=== PATIENT | female | born 1980 | race Caucasian/White ===

== ENCOUNTER 2021-09-27 10:00 | Outpatient (CLI) | payer OTHER, SELFPAY ==
[2021-09-27 10:12] LABS: Basophils Absolute Auto 0.05 K/uL (0.00-0.30); Basophils Percent Auto 0.8 % (0.0-3.0); Eosinophils Absolute Auto 0.24 K/uL (0.00-0.50); Eosinophils Percent Auto 3.8 % (0.0-7.0); Hematocrit 40.3 % (33.0-51.0); Hemoglobin* 13.4 gm/dL (12.0-16.0); Lymphocytes Absolute Auto 2.26 K/uL (0.90-2.90); Lymphocytes Percent Auto 35.5 % (20-44); Mean Corpuscular HGB Conc 33 gm/dL (32-36); Mean Corpuscular Hemoglobin 28 pg (26-34); Mean Corpuscular Volume 84 fL (80-100); Monocytes Absolute Auto 0.58 K/UL (0.00-0.90); Monocytes Percent Auto 9.1 % (0.0-11.0); Neutrophils Absolute Auto 3.24 K/uL (1.7-7.0); Neutrophils Percent Auto 50.8 % (42.0-72.0); Platelet Count* 255 K/uL (140-440); Red Blood Count 4.81 m/uL (4.00-5.20); White Blood Count* 6.37 K/uL (4.50-11.00)
[2021-09-27 10:13] LABS: Slide Review Reflex No
[2021-09-27 14:24] LABS: Albumin* 4.5 g/dL (3.3-5.0); Chloride* 104 mmol/L (96-114); Potassium* 4.4 mmol/L (3.6-5.1); Sodium* 137 mmol/L (135-149)
[2021-09-27 14:26] LABS: Amylase* 57 U/L (18-89); Creatinine* 0.6 mg/dL (0.5-1.5); Estimated Glomerular Filt Rate 116 ml/min
[2021-09-27 14:27] LABS: Alanine Aminotransferase* 30 U/L (4-35); Alkaline Phosphatase* 66 U/L (40-150); Aspartate Amino Transferase* 31 U/L (12-35); Bilirubin Total* 1.4 mg/dL (0.1-1.5); Blood Urea Nitrogen* 11 mg/dL (5-24); Calcium* 9.3 mg/dL (8.4-10.6); Carbon Dioxide* 25 mmol/L (20-32); Glucose* 110 mg/dL (60-115); Lipase* 98 U/L (23-300); Total Protein* 7.6 g/dL (6.0-8.3)
== END 2021-09-27 10:01 | disposition home or self-care (01) ==
PROVIDERS: PCP Family Medicine; Visit Provider Family Medicine
DX: R10.13 Epigastric pain (principal); E66.9 Obesity, unspecified; R03.0 Elevated blood-pressure reading, without diagnosis of hypertension
CPT/HCPCS: 80053; 82150; 83690; 85025

== ENCOUNTER 2021-10-03 13:49 | Outpatient (CLI) | payer OTHER, SELFPAY ==
--- NOTE | 2021-10-03 14:00 | CRLHL7_ITS ---
For Patients: As a result of the Century Cures Act, medical imaging exams and procedure reports are released immediately into your electronic medical record. You may view this report before your referring provider. If you have questions, please contact your health care provider. INDICATION: EPIGASTRIC PAIN COMPARISON: none TECHNIQUE: Real time michael scale imaging and color Doppler analysis was performed of the right upper quadrant. FINDINGS: The patient`s liver is of normal size and has diffusely increased echogenicity. There is a normal appearance of the hepatic IVC and proximal abdominal aorta. There is no evidence of ascites. The gallbladder is of normal size and there is no evidence of intraluminal stones or sludge. The gallbladder wall measures 2 mm in thickness. The common bile duct is of normal size and measures 5 mm in diameter at the level of the nick hepatis. The pancreas appears normal. There is no evidence of a stone or hydronephrosis within the right kidney. The right kidney measures 10.1 cm in length. IMPRESSION: Severe diffuse hepatic steatosis. Remainder normal. Dictated by Pratik Capone MD @ 10/03/2021 2:52:21 PM (Electronically Signed)
--- NOTE | 2021-10-03 15:00 | CRLHL7_ITS ---
For Patients: As a result of the Century Cures Act, medical imaging exams and procedure reports are released immediately into your electronic medical record. You may view this report before your referring provider. If you have questions, please contact your health care provider. BILATERAL DIGITAL SCREENING MAMMOGRAM WITH COMPUTER-AIDED DETECTION, 10/03/2021 CLINICAL HISTORY: Routine screening exam. COMPARISON: None TECHNIQUE: Digital mammogram in CC and MLO projections including computer-aided detection (CAD). BREAST COMPOSITION: There are scattered areas of fibroglandular density FINDINGS: RIGHT Breast: Focal asymmetric density lateral breast posterior depth 11 cm from the nipple. LEFT Breast: No suspicious findings. IMPRESSION: RIGHT breast asymmetry/mass. RECOMMENDATIONS: Additional mammographic views of the RIGHT breast including 3D CC/MLO. RIGHT breast ultrasound may also be required. BI-RADS Category 0: Incomplete: Need Additional Imaging Evaluation and/or Prior Mammograms for Comparison The [facility] will contact the patient for follow-up. Dictated by Pratik Capone MD @ 10/04/2021 9:17:38 AM PT/Dictated by: Pratik Capone MD @ 10/04/2021 9:17:00 AM (Electronically Signed)
== END 2021-10-03 13:50 | disposition home or self-care (01) ==
LOC: US 13:50
PROVIDERS: PCP Family Medicine; Visit Provider Family Medicine
DX: R10.13 Epigastric pain (principal); K76.0 Fatty (change of) liver, not elsewhere classified; Z12.31 Encounter for screening mammogram for malignant neoplasm of breast; N63.10 Unspecified lump in the right breast, unspecified quadrant
CPT/HCPCS: 76705; 77063; 77067

== ENCOUNTER 2021-10-15 09:55 | Outpatient (CLI) | payer OTHER, SELFPAY ==
--- NOTE | 2021-10-15 09:45 | CRLHL7_ITS ---
For Patients: As a result of the Cures Act, medical imaging exams and procedure reports are released immediately into your electronic medical record. You may view this report before your referring provider. If you have questions, please contact your health care provider. DIGITAL DIAGNOSTIC RIGHT MAMMOGRAM USING TOMOSYNTHESIS AND COMPUTER-AIDED DETECTION RIGHT BREAST ULTRASOUND CLINICAL HISTORY: RIGHT breast mass/asymmetry. COMPARISON: 10/03/2021. TECHNIQUE: Digital RIGHT mammogram in two projections. Tomosynthesis and CAD utilized. Real-time ultrasound imaging of RIGHT breast with imaging documentation. BREAST COMPOSITION: There are areas of scattered fibroglandular density. FINDINGS: 3D MLO and 3D XCCL mammograms RIGHT breast submitted. Decreased conspicuity of asymmetric density. No architectural distortion or adenopathy. No suspicious calcifications. Targeted RIGHT breast ultrasound performed in the upper outer quadrant 11 cm from the nipple performed. Normal fibroglandular tissue noted. No suspicious findings. IMPRESSION: Normal fibroglandular tissue RIGHT breast. No evidence of malignancy. RECOMMENDATIONS: Annual BILATERAL screening mammography. Results and recommendations discussed with the patient. BI-RADS Category 2: Benign A lay language report of this examination will be provided to the patient. Dictated by Pratik Capone MD @ 10/15/2021 12:27:50 PM hongj/Dictated by: Pratik Capone MD @ 10/15/2021 12:27:00 PM (Electronically Signed)
--- NOTE | 2021-10-15 10:15 | CRLHL7_ITS ---
For Patients: As a result of the Cures Act, medical imaging exams and procedure reports are released immediately into your electronic medical record. You may view this report before your referring provider. If you have questions, please contact your health care provider. PLEASE SEE DIGITAL DIAGNOSTIC RIGHT MAMMOGRAM PERFORMED SAME DAY CRL:corazon chandra/Dictated by: Pratik Capone MD @ 10/15/2021 12:28:00 PM (Electronically Signed)
== END 2021-10-15 09:56 | disposition home or self-care (01) ==
LOC: MAMMO 09:55
PROVIDERS: PCP Family Medicine; Visit Provider Family Medicine
DX: N63.10 Unspecified lump in the right breast, unspecified quadrant (principal); R92.8 Other abnormal and inconclusive findings on diagnostic imaging of breast
CPT/HCPCS: 76642; 77065; G0279

== ENCOUNTER 2022-09-23 13:32 | Outpatient (CLI) | payer OTHER, SELFPAY | END 2022-09-23 13:33 | disposition home or self-care (01) | LOC: NFLDREF 09-25 08:13 | PROVIDERS: PCP Family Medicine; Referring Provider Family Medicine; Visit Provider Family Medicine | DX: Z00.00 Encounter for general adult medical examination without abnormal findings (principal); E78.5 Hyperlipidemia, unspecified; R03.0 Elevated blood-pressure reading, without diagnosis of hypertension; E66.9 Obesity, unspecified; R10.13 Epigastric pain; G44.229 Chronic tension-type headache, not intractable | CPT/HCPCS: 80053; 80061 ==

== ENCOUNTER 2022-10-02 15:37 | Outpatient (CLI) | payer OTHER, SELFPAY ==
--- NOTE | 2022-10-02 16:00 | CRLHL7_ITS ---
For Patients: As a result of the Century Cures Act, medical imaging exams and procedure reports are released immediately into your electronic medical record. You may view this report before your referring provider. If you have questions, please contact your health care provider. INDICATION: EPIGASTRIC PAIN COMPARISON: 10/03/2021 TECHNIQUE: Real time michael scale imaging and color Doppler analysis was performed of the right upper quadrant. FINDINGS: The patient`s liver is of normal size and has coarsened and increased echogenicity. There is a normal appearance of the hepatic IVC and proximal abdominal aorta. There is no evidence of ascites. The gallbladder is of normal size and there is no evidence of intraluminal stones or sludge. The gallbladder wall measures 2 mm in thickness. The common bile duct is of normal size and measures 3 mm in diameter at the level of the nick hepatis. The pancreas appears normal. There is no evidence of a stone or hydronephrosis within the right kidney. The right kidney measures 11.0 cm in length. IMPRESSION: Mild diffuse hepatic steatosis. Remainder normal. Dictated by Pratik Capone MD @ 10/03/2022 9:16:15 AM (Electronically Signed)
== END 2022-10-02 15:38 | disposition home or self-care (01) ==
LOC: US 15:37
PROVIDERS: PCP Family Medicine; Visit Provider Family Medicine
DX: R10.13 Epigastric pain (principal); K76.0 Fatty (change of) liver, not elsewhere classified
CPT/HCPCS: 76705

== ENCOUNTER 2022-12-18 15:01 | Outpatient (CLI) | payer OTHER, SELFPAY ==
--- NOTE | 2022-12-18 15:20 | CRLHL7_ITS ---
For Patients: As a result of the Century Cures Act, medical imaging exams and procedure reports are released immediately into your electronic medical record. You may view this report before your referring provider. If you have questions, please contact your health care provider. BILATERAL SCREENING MAMMOGRAM WITH COMPUTER-AIDED DETECTION TECHNIQUE: CC and MLO views were obtained. These mammographic images have been obtained using full-field digital technique. These mammographic images were interpreted with the benefit of computer-aided detection. COMPARISON FILM: 10/03/21, 10/15/21 (RT). FINDINGS: There are scattered areas of fibroglandular density IMPRESSION: There is no radiographic evidence for malignancy. ASSESSMENT: BI-RADS Category 1: Negative RECOMMENDATION: Routine screening mammogram in 1 year. A lay language report of this examination will be provided to the patient. Pratik Capone M.D. Diagnostic Radiologist [email or web address]/Dictated by: Pratik Capone MD @ 12/19/2022 10:12:00 AM (Electronically Signed)
== END 2022-12-18 15:02 | disposition home or self-care (01) ==
LOC: MAMMO 15:01
PROVIDERS: PCP Family Medicine; Visit Provider Physician Assistant
DX: Z12.31 Encounter for screening mammogram for malignant neoplasm of breast (principal)
CPT/HCPCS: 77067

== ENCOUNTER 2023-01-14 13:01 | Outpatient (CLI) | payer OTHER, SELFPAY | END 2023-01-14 13:02 | disposition home or self-care (01) | LOC: NFLDREF 01-15 11:29 | PROVIDERS: PCP Family Medicine; Visit Provider Family Medicine | DX: K76.0 Fatty (change of) liver, not elsewhere classified (principal) | CPT/HCPCS: 80076 ==

== ENCOUNTER 2023-08-22 08:05 | Day surgery (SDC) | payer OTHER, SELFPAY ==
[2023-08-22] VITALS (26 sets, daily range): BP systolic 101–131; BP diastolic 56–87; PULSE 43–69; RESP 10–20; TEMP 36.2–37.1; O2SAT 89–100; BMI 29.8
--- NOTE | 2023-08-22 08:08 | ED_ITS ---
HPI - General Adult General Time Seen by Provider: 08:08 Date Seen: 08/22/23 Chief complaint: Abdominal Pain Stated complaint: abdominal pain,nausea Time Seen by Provider: 08/22/23 08:07 Source: patient, RN notes reviewed and old records reviewed Mode of arrival: ambulatory Limitations: no limitations History of Present Illness HPI narrative: 43-year-old female who presents today with abdominal pain and nausea. Patient notes right-sided abdominal pain and nausea with no vomiting this morning and overnight. Says this feels similar to her usual liver pain but has lasted longer. She notes that she did fall and land on her back yesterday and is concerned about trauma. Feels bloated, did have a bowel movement this morning which was normal. No fevers or chills. Has not taken anything for her symptoms Related Data Home Medications ?Medication ?Instructions ?Recorded ?Confirmed iodine 150 mcg tablet 300 tab PO DAILY 09/24/21 08/22/23 magnesium oxide 400 mg (241.3 mg mg PO .Bedtime 09/24/21 06/11/23 magnesium) tablet calcium carbonate (Tums) 200 mg PO .hs 09/27/21 08/22/23 calcium carbonate 333 mg-magnesium tab PO DAILY 09/27/21 06/11/23 oxide 133 mg-zinc gluc 5 mg tablet omega-3 fatty acids-fish oil 360 2 cap PO BID 09/27/21 08/22/23 mg-1,200 mg capsule (Fish Oil) omeprazole 20 mg tablet,delayed 20 mg PO QAM 09/27/21 08/22/23 release Previous Rx's ?Medication ?Instructions ?Recorded propranolol 60 mg capsule,24 60 mg PO QHS #90 caps 09/23/22 hr,extended release rosuvastatin 10 mg tablet 10 mg PO QDAY #90 ea 01/07/23 norethindrone (contraceptive) 0.35 0.35 mg PO QDAY #84 ea 06/11/23 mg tablet (Incassia) Allergies Allergy/AdvReac Type Severity Reaction Status Date / Time acetaminophen Allergy Intermediate Vomiting Verified 08/22/23 09:20 hydrocodone Allergy Intermediate Vomiting Verified 08/22/23 09:20 [facility] Medical History Migraine ?G43.909 - Migraine, unspecified, not intractable, without status migrainosus (ICD-10) History of irritable bowel syndrome ?Z87.19 - Personal history of other diseases of the digestive system (ICD-10) History of anemia ?Z86.2 - Personal history of diseases of the blood and blood-forming organs and certain disorders involving the immune mechanism (ICD-10) Family History (Updated 08/22/23 @ 11:09 by Estefania Valdivia MD) Uncle Brain tumor Father Diabetes History of hyperlipidemia High blood pressure Mother High blood pressure Social History Narrative: business analyst project manager. . Nonsmoker. What is your current living situation?: I presently have a place to live Problems where you live: no known problems In the past 12 months, utilities in danger of being shut off: no In past 12 months, lack of transportation kept you from medical appts, meetings, work, or getting things needed for daily living: no In the past 12 mos, have been you worried that your food would run out before you had money to buy more?: never true In the past 12 mos, the food you bought just didn't last and you didn't have money to buy more?: never true Smoking Status: Never smoker How often do you have a drink containing alcohol: never How often do you have six or more drinks on one occasion: Never AUDIT-C Alcohol total score: 0 Non-prescribed substance use: denies use How often does anyone, including family, friends and others, physically hurt you : never How often does anyone, including family, friends and others, insult or talk down to you: rarely How often does anyone, including family, friends and others, threaten you with harm: never How often does anyone, including family, friends and others, scream or curse at you: never Little interest or pleasure in doing things: not at all Feeling down, depressed, or hopeless: not at all Exam Narrative: Exam Narrative: General: Well-developed and well-nourished, no acute distress Head: Atraumatic and normocephalic Eyes: Pupils are equal reactive, extraocular motions intact, conjunctiva clear ENT: External nose and ears are normal, posterior pharynx without erythema or exudate Neck: No midline cervical tenderness, full spontaneous range of motion the neck, trachea midline, no adenopathy Heart: Regular rate and rhythm no murmurs or thrills Lungs: Clear to auscultation bilaterally without wheezes or crackles Abdomen: Soft, epigastric and right upper quadrant tenderness, nondistended with active bowel sounds Musculoskeletal: No tenderness, deformity, or edema Neurologic: Awake, alert, and oriented x3, no gross focal neurologic deficits, cranial nerves intact as tested Psych: Mood and affect are appropriate Skin: No rashes Const: Vital Signs, click to edit/add: Vital Signs - 24 hr 08/22/23 08:09 08/22/23 09:20 08/22/23 10:40 Temperature 97.2 F L Pulse Rate [Pulse Oximeter] 56 L 52 L 52 L Respiratory Rate 16 16 Blood Pressure [Ri ght Upper Arm] 126/84 125/73 120/74 Pulse Oximetry 99 99 100 Oxygen Delivery Me thod Room Air Room Air Room Air Course Course ED Course: Patient seen and examined. Reviewed most recent annual physical with primary care from September 2022, she does have a history of fatty liver as well as epigastric pain, irritable bowel syndrome, it sounds like at that time she was having intermittent right upper quadrant pain which did have been night and frequently associated with nausea, similar to symptoms today. On exam, patient is finally stable, appears little uncomfortable with right upper quadrant tenderness. This could be exacerbation of her chronic liver disease, also consider acute cholecystitis or pancreatitis. Solid organ injury from her fall is possible but less likely. Labs ordered along with CT scan, Dilaudid for pain, and Zofran. Reevaluation(s) Time of Reevaluation #1: 09:13 Reevaluation #1: Labs ordered and independently interpreted by me with leukocytosis white count 15.4, urinalysis with many bacteria. Time of Reevaluation #2: 09:34 Reevaluation #2: Labs ordered and independently interpreted by me with normal hepatic panel, normal lipase, normal basic panel. CT scan independently interpreted by me appears to demonstrate acute appendicitis, reviewed radiology interpretation which agrees. INR added on as patient has HINDS and likely will need surgery. Will discuss with General surgery. Patient is NPO for solids last night, liquids this morning. Care discussed with Dr. Valdivia, general surgery, plan for OR today Patient is generally healthy, low risk for anesthesia for surgery. Vital Signs Vital signs: Initial Vital Signs Temperature 97.2 F L 08/22/23 08:09 Temperature Source Temporal Artery Scan 08/22/23 08:09 Pulse Rate 56 L 08/22/23 08:09 Respiratory Rate 16 08/22/23 08:09 Blood Pressure 126/84 08/22/23 08:09 Blood Pressure Mean 98 08/22/23 08:09 Blood Pressure Position Sitting 08/22/23 08:09 Pulse Oximetry 99 08/22/23 08:09 Oxygen Delivery Method Room Air 08/22/23 08:09 Vital Signs Temperature 97.2 F L 08/22/23 08:09 Pulse Rate 56 L 08/22/23 08:09 Respiratory Rate 16 08/22/23 08:09 Blood Pressure 126/84 08/22/23 08:09 Pulse Oximetry 99 08/22/23 08:09 Oxygen Delivery Method Room Air 08/22/23 08:09 Temperature 97.2 F L 08/22/23 08:09 Pulse Rate 52 L 08/22/23 10:40 Respiratory Rate 16 08/22/23 10:40 Blood Pressure 120/74 08/22/23 10:40 Pulse Oximetry 100 08/22/23 10:40 Oxygen Delivery Method Room Air 08/22/23 10:40 Medications Administered Medications: Discontinued Medications Generic Name Dose Route Start Last Admin Trade Name Freq PRN Reason Stop Dose Admin Hydromorphone HCl 0.5 mg 08/22/23 08:21 08/22/23 09:12 Hydromorphone 0.5 Mg/0.5 Ml Inj IVP 08/22/23 08:22 0.5 mg ONCE ONE Administration Hydromorphone HCl 0.5 mg 08/22/23 10:24 08/22/23 10:43 Hydromorphone 0.5 Mg/0.5 Ml Inj IVP 08/22/23 10:25 0.5 mg ONCE ONE Administration Piperacillin Sod/Tazobactam 100 mls @ 100 mls/hr 08/22/23 09:39 08/22/23 11:16 Sod 3.375 gm/ Sodium Chloride IVPB 08/22/23 09:40 Infused ONCE ONE Infusion Ondansetron HCl 4 mg 08/22/23 08:21 08/22/23 09:12 Ondansetron 2 Mg/Ml Inj IVP 06/29/24 08:22 4 mg ONCE ONE Administration Medical Decision Making Lab Data Labs: Lab Results 08/22/23 08/22/23 08/22/23 Range/Units 08:22 08:50 09:33 WBC 15.04 H (4.50-11.00) K/uL RBC 4.49 (4.00-5.20) m/uL Hgb 13.0 (12.0-16.0) gm/dL Hct 39.2 (33.0-51.0) % MCV 87 (80-100) fL MCH 29 (26-34) pg MCHC 33 (32-36) gm/dL RDW Coeff of Pia 11.7 (11.5-15.5) % Plt Count 242 (140-440) K/uL Neut % (Auto) 84.7 H (42.0-72.0) % Lymph % (Auto) 10.4 L (20-44) % Baldwin % (Auto) 4.1 (0.0-11.0) % Eos % (Auto) 0.5 (0.0-7.0) % Baso % (Auto) 0.2 (0.0-3.0) % Neut # (Auto) 12.70 H (1.7-7.0) K/uL Lymph # (Auto) 1.60 (0.90-2.90) K/uL Baldwin # (Auto) 0.60 (0.00-0.90) K/UL Eos # (Auto) 0.10 (0.00-0.50) K/uL Baso # (Auto) 0.00 (0.00-0.30) K/uL Abs Immat Gran (auto) 0.00 (0.00-0.30) K/uL Imm/Tot Granulo (auto) 0.1 % INR 0.96 (0.91-1.10) Sodium 135 (135-149) mmol/L Potassium 4.0 (3.6-5.1) mmol/L Chloride 105 (96-114) mmol/L Carbon Dioxide 22 (20-32) mmol/L Anion Gap 8 (7-15) mEq/L BUN 14 (5-24) mg/dL Creatinine 0.6 (0.5-1.5) mg/dL Estimated Creat Clear 118.78 Estimated GFR 115 ml/min Glucose 121 H (60-115) mg/dL Calcium 9.0 (8.4-10.6) mg/dL Magnesium 2.1 (1.5-2.6) mg/dL Total Bilirubin 1.4 (0.1-1.5) mg/dL Direct Bilirubin 0.2 (0.0-0.5) mg/dL AST 23 (12-35) U/L ALT 20 (4-35) U/L Alkaline Phosphatase 60 (40-150) U/L Total Protein 7.5 (6.0-8.3) g/dL Albumin 4.8 (3.3-5.0) g/dL Lipase 91 (23-300) U/L Urine Color Yellow (Yellow) Urine Appearance Cloudy A (Clear) Urine pH 8.5 (5.0-8.5) Ur Specific [place] 1.015 (1.000-1.030) Urine Protein 1+ A (Negative) Urine Glucose (UA) Negative (Negative) Urine Ketones Negative (Negative) Urine Blood Negative (Negative) Urine Nitrite Negative (Negative) Urine Bilirubin Negative (Negative) Urine Urobilinogen 0.2 (0.2-1.0) Ur Leukocyte Esterase Negative (Negative) Urine RBC 0-2 (0-2) Urine WBC 0-2 (0-5) Ur Squamous Epith Cells Few (None-Few) Amorphous Sediment Many A (None) Urine Bacteria Many A (None) Urine HCG, Qual Negative (Negative) Lab Acknowledgement Test Added Discharge Plan Discharge Clinical Impression: Acute appendicitis, HINDS (nonalcoholic steatohepatitis) Patient Disposition: Admitted As Observation
--- NOTE | 2023-08-22 08:21 | CRLHL7_ITS ---
For Patients: As a result of the Century Cures Act, medical imaging exams and procedure reports are released immediately into your electronic medical record. You may view this report before your referring provider. If you have questions, please contact your health care provider. INDICATION: Epigastric and right upper quadrant pain. Nausea and vomiting. Fall onto right side 08/21/2023 COMPARISON: None TECHNIQUE: CT examination of the abdomen and pelvis was performed following the uneventful intravenous administration of 93 cc of Isovue 370. Thin section axial images were obtained from the lung bases through the pubic symphysis. Oral contrast was not administered. Please note that all CT scans at this facility use dose modulation, iterative reconstruction, and/or weight-based dosing when appropriate to reduce radiation dose to as low as reasonably achievable. FINDINGS: LUNG BASES: The lung bases as visualized appear normal.The heart size is normal at the lung bases. LIVER/BILIARY SYSTEM:The liver is normal in size and configuration. There is no focal mass and there is no intra- or extra hepatic biliary ductal dilatation.Hepatic steatosis. Normal-appearing gallbladder ADRENALS: Normal KIDNEYS, URETERS and BLADDER:The kidneys appear normal. No visible mass, calculus or hydronephrosis. The ureters and bladder as visualized appear normal. SPLEEN:Normal appearance. PANCREAS: Appears normal. RETROPERITONEUM and MESENTERY: There is no mass, adenopathy or aortic aneurysm. Atherosclerotic vascular calcification GASTROINTESTINAL SYSTEM: Appendix contains multiple appendicoliths and is mildly dilated. On coronal image number 56, the appendix measures 10 millimeters. The findings are compatible with acute uncomplicated appendicitis. PELVIS: 2 adjacent cystic abnormalities in the right ovary probably functional. These measure about 2-1/2 centimeters each. OSSEOUS STRUCTURES and ABDOMINAL WALL: There is an age-appropriate appearance of the osseous structures.No significant abdominal wall defect. OTHER: No free fluid or free air. IMPRESSION: 1. Findings compatible with acute uncomplicated appendicitis. 2. Hepatic steatosis. No other right upper quadrant abnormality. 3. No posttraumatic findings. Please note that all CT scans at this facility use dose modulation, iterative reconstruction, and/or weight-based dosing when appropriate to reduce radiation dose to as low as reasonably achievable. Dictated by Leonid Honeycutt MD @ 08/22/2023 9:30:02 AM (Electronically Signed)
[2023-08-22 08:46] LABS: Appearance Urine Cloudy (Clear); Bilirubin Urine Negative (Negative); Blood Urine Negative (Negative); Color Urine Yellow (Yellow); Glucose Urine Negative (Negative); Ketones Urine Negative (Negative); Leukocyte Esterase Urine Negative (Negative); Nitrite Urine Negative (Negative); Protein Urine 1+ (Negative); Specific Gravity Urine 1.015 (1.000-1.030); Urobilinogen Urine 0.2 (0.2-1.0); pH Urine 8.5 (5.0-8.5)
[2023-08-22 08:59] LABS: Basophils Percent Auto 0.2 % (0.0-3.0); Eosinophils Percent Auto 0.5 % (0.0-7.0); Hematocrit 39.2 % (33.0-51.0); Immature Granulocytes Pct Auto 0.1 %; Lymphocytes Percent Auto 10.4 % (20-44); Mean Corpuscular HGB Conc 33 gm/dL (32-36); Mean Corpuscular Hemoglobin 29 pg (26-34); Mean Corpuscular Volume 87 fL (80-100); Monocytes Percent Auto 4.1 % (0.0-11.0); Neutrophils Percent Auto 84.7 % (42.0-72.0); Platelet Count* 242 K/uL (140-440); RDW Coefficient of Variation % 11.7 % (11.5-15.5); Red Blood Count 4.49 m/uL (4.00-5.20); White Blood Count* 15.04 K/uL (4.50-11.00)
[2023-08-22 09:04] LABS: Slide Review Reflex No
[2023-08-22 09:10] LABS: Amorphous Sediment Urine Many; Bacteria Urine Many; RBC Urine 0-2 (0-2); Squamous Epithelial Cell Urine Few (None-Few); WBC Urine 0-2 (0-5)
[2023-08-22 09:12] LABS: Albumin* 4.8 g/dL (3.3-5.0)
[2023-08-22] MEDS: HYDROmorphone 0.5 mg/0.5 ml inj IVP ×2 (09:12→10:43)
[2023-08-22] MEDS: ONDANSETRON 2 MG/ML inj 4 MG IVP ×2 (09:12→15:48)
[2023-08-22 09:13] LABS: Chloride* 105 mmol/L (96-114); Sodium* 135 mmol/L (135-149)
[2023-08-22 09:15] LABS: Anion Gap 8 mEq/L (7-15); Aspartate Amino Transferase* 23 U/L (12-35); Bilirubin Direct* 0.2 mg/dL (0.0-0.5); Bilirubin Total* 1.4 mg/dL (0.1-1.5); Carbon Dioxide* 22 mmol/L (20-32); Creatinine* 0.6 mg/dL (0.5-1.5); Est. Creatinine Clearance* 118.78; Estimated Glomerular Filt Rate 115 ml/min; Total Protein* 7.5 g/dL (6.0-8.3)
[2023-08-22 09:16] LABS: Alanine Aminotransferase* 20 U/L (4-35); Alkaline Phosphatase* 60 U/L (40-150); Blood Urea Nitrogen* 14 mg/dL (5-24); Glucose* 121 mg/dL (60-115); Lipase* 91 U/L (23-300); Magnesium* 2.1 mg/dL (1.5-2.6)
[2023-08-22 09:57] LABS: INR 0.96 (0.91-1.10); Prothrombin Time 13.3 Seconds
[2023-08-22] MEDS: PIPERACILLIN/TAZOBACTAM 3.375 GM in 0.9 % SODIUM CHLORIDE Mini-bag 100 ML IVPB (10:43)
[2023-08-22 11:08] LABS: Ur HCG Qualitative* Negative (Negative)
[2023-08-22] MEDS: LACTATED RINGERS 1000 ML 1,000 ML 100 ML IV ×2 (11:28→13:11)
--- NOTE | 2023-08-22 11:31 | PM.GSHP ---
History of Present Illness History of Present Illness Date Seen: 08/22/23 Chief complaint: abdominal pain,nausea Narrative: Monse Dailey is a 43 year old female who presented to the emergency room this morning with severe abdominal pain. She states that her pain hurts ?all over but mostly in her upper abdomen. She thinks that it is moving lower now. She states that she has had a history of ?liver attacks. ? This a occurs primarily at night where she will get abdominal pain. Usually when she has this she will sit in the recliner in use a special pad and the pain will go away after an hour. However this time the pain did not get better. She states that she has had nausea but has not vomited. She has been lightheaded with standing. She has not had diarrhea. No fevers. 2 years ago she was diagnosed with severe non alcoholic steatohepatitis. She was worked up for gallstones but has not had any, not even on her most recent ultrasound last year. [facility] Medical History Migraine ?G43.909 - Migraine, unspecified, not intractable, without status migrainosus (ICD-10) History of irritable bowel syndrome ?Z87.19 - Personal history of other diseases of the digestive system (ICD-10) History of anemia ?Z86.2 - Personal history of diseases of the blood and blood-forming organs and certain disorders involving the immune mechanism (ICD-10) Family History (Updated 08/22/23 @ 11:09 by Estefania Valdivia MD) Uncle Brain tumor Father Diabetes History of hyperlipidemia High blood pressure Mother High blood pressure Social History Narrative: [employer]. . Nonsmoker. What is your current living situation?: I presently have a place to live Problems where you live: no known problems In the past 12 months, utilities in danger of being shut off: no In past 12 months, lack of transportation kept you from medical appts, meetings, work, or getting things needed for daily living: no In the past 12 mos, have been you worried that your food would run out before you had money to buy more?: never true In the past 12 mos, the food you bought just didn't last and you didn't have money to buy more?: never true Smoking Status: Never smoker How often do you have a drink containing alcohol: never How often do you have six or more drinks on one occasion: Never AUDIT-C Alcohol total score: 0 Non-prescribed substance use: denies use How often does anyone, including family, friends and others, physically hurt you: never How often does anyone, including family, friends and others, insult or talk down to you: rarely How often does anyone, including family, friends and others, threaten you with harm: never How often does anyone, including family, friends and others, scream or curse at you: never Little interest or pleasure in doing things: not at all Feeling down, depressed, or hopeless: not at all Meds Home Medications and Allergies Home Medications ?Medication ?Instructions ?Recorded ?Confirmed ?Type iodine 150 mcg tablet 300 tab PO DAILY 09/24/21 08/22/23 History magnesium oxide 400 mg (241.3 mg mg PO .Bedtime 09/24/21 06/11/23 History magnesium) tablet calcium carbonate (Tums) 200 mg PO .hs 09/27/21 08/22/23 History calcium carbonate 333 mg-magnesium tab PO DAILY 09/27/21 06/11/23 History oxide 133 mg-zinc gluc 5 mg tablet omega-3 fatty acids-fish oil 360 2 cap PO BID 09/27/21 08/22/23 History mg-1,200 mg capsule (Fish Oil) omeprazole 20 mg tablet,delayed 20 mg PO QAM 09/27/21 08/22/23 History release Allergies Allergy/AdvReac Type Severity Reaction Status Date / Time acetaminophen Allergy Intermediate Vomiting Verified 08/22/23 09:20 hydrocodone Allergy Intermediate Vomiting Verified 08/22/23 09:20 Exam Narrative: Exam Narrative: General appearance: Alert, cooperative, and in no distress Eyes: PERRLA, eye lids clear, and sclera white HENT Head: Normocephalic Ears: External ears normal Pulmonary: Breathing nonlabored on room air Cardiovascular Heart: Regular rate Extremities: warm and well perfused Gastrointestinal Abdominal: No scars. Patient is tender with guarding primarily on the right side of her abdomen. Musculoskeletal: Extremities: Upper: Both upper extremities have normal joint range of motion and intact strength. Lower: Both lower extremities have normal joint range of motion and intact strength. Skin: Normal skin color, texture, and turgor. Neurologic: No focal deficits Psychiatric: Alert, oriented, cooperative, normal affect. Const: Vital Signs, click to edit/add: Vital Signs - 24 hr 08/22/23 08:09 08/22/23 09:20 08/22/23 10:40 Temperature 97.2 F L Pulse Rate [Pulse Oximeter] 56 L 52 L 52 L Respiratory Rate 16 16 Blood Pressure [Ri ght Upper Arm] 126/84 125/73 120/74 Pulse Oximetry 99 99 100 Oxygen Delivery Me thod Room Air Room Air Room Air Results Results Labs: White blood cell count is 14. LFTs within normal limits. Abdomen CT scan report/results: report reviewed and image reviewed Additional studies: IMPRESSION: 1. Findings compatible with acute uncomplicated appendicitis. 2. Hepatic steatosis. No other right upper quadrant abnormality. 3. No posttraumatic findings. Please note that all CT scans at this facility use dose modulation, iterative reconstruction, and/or weight-based dosing when appropriate to reduce radiation dose to as low as reasonably achievable. Dictated by Leonid Honeycutt MD @ 08/22/2023 9:30:02 AM Progress Note:A&P Assessment and plan (1) HINDS (nonalcoholic steatohepatitis): Status: Acute (2) Acute appendicitis: Status: Acute Assessment and Plan: The patient is a 43-year-old female with acute appendicitis. We discussed that appendectomy is the preferred treatment for this. This can most often be done laparoscopically. We discussed risks and benefits of the procedure including but not limited to bleeding, need for conversion to open, risk of injury to other structures, need for possible bowel resection, and abscess formation. The patient understands that the risk of abscess is higher if the appendix is perforated. For that reason, we generally keep patient is in the hospital on IV antibiotics until vital signs and white blood cell count had normalized. We also discussed recovery including 2 weeks of lifting restrictions. She is agreeable to proceed. We will plan on surgery emergently this morning. I did recommend that she undergo possibly HIDA scan to look for biliary dyskinesia once she has recovered given her ongoing right upper quadrant symptoms that do sound biliary in nature.
[2023-08-22] MEDS: BUPIVACAINE 0.25% 30 ML INJECTION (12:05)
--- NOTE | 2023-08-22 12:13 | PM.GSPRC ---
Operative Note Date of procedure: 08/22/23 Pre-op diagnosis: Acute appendicitis Post-op diagnosis: Same Type of Procedure: Laparoscopic appendectomy Indications: The patient is a 43-year-old female who presented to the emergency department this morning with severe abdominal pain. Workup revealed acute appendicitis. I recommended appendectomy and she agreed to proceed Procedure Description: After discussing the risks and benefits of the procedure, the patient signed informed consent.? The operative site was marked and the patient was brought to the operating room and placed on the operating table in supine position.? Care was taken to pad the patient's pressure points.?? The patient was then intubated by anesthesia.?? The operative site was then prepped and draped in the usual sterile fashion.? A time-out was then performed. Entrance to the abdomen was obtained via a 5 mm optical trocar in the left upper quadrant. The abdomen was insufflated and briefly surveyed for any signs of injury. There were none. A 12 mm port was placed inferior to the umbilicus as well as a 5 mm port in the left lower quadrant. Both were done under direct vision. The patient was then placed in Trendelenburg position with the right side up. The small bowel was gently moved out of the way and the appendix was in view. A small amount of dissection was necessary to free the appendix from the surrounding pelvic attachments. The appendix was grasped and pulled into view. A mesenteric window was created between the base of the appendix and the mesoappendix. An Endo-ИРИНА purple load stapler was then used to transect the appendix at its base. A vascular load stapler was then used to divide the mesoappendix. The staple lines were inspected for bleeding. There was none. The appendix was then removed from the abdomen using an Endo-Catch bag. The specimen was sent to pathology. The 12 mm port site fascia was closed with 0 Vicryl using a Jared-Beatriz device. The abdomen was desufflated and the remaining ports removed. The skin was then closed with absorbable subcuticular suture. Sterile dressings were then applied. Instrument sponge and needle counts were correct at the end of the case. The patient was then woken and transported to the PACU in stable condition. The patient tolerated the procedure well. Findings: Acute non perforated appendicitis Anesthesia: GETA Surgeon: Estefania Valdivia MD Estimated blood loss (mL): 5 Specimen: Appendix Condition: stable Disposition: PACU
--- NOTE | 2023-08-22 12:19 | SUR.OPER ---
patient arrrived to operating room with ecchymotic large area on her left forearm-patient states from a recent dog bite
[2023-08-22] MEDS: NALOXONE 1 MG/ML SYRINGE IV (12:50)
--- NOTE | 2023-08-22 12:52 | W.ANESCHARGE ---
Anesthesia Charges Start Date/Time Anesthesia Start Date: 08/22/23 Anesthesia Start Time: 11:28 Stop Date/Time Anesthesia Stop Date: 08/22/23 Anesthesia Stop Time: 12:25 Summary Emergency: INSPECTOR POISING
--- NOTE | 2023-08-22 16:32 | PC.NURSE ---
MSG LEFT WITH PATIENTS PREFERRED PHARMACY ([facility]) TO CANCEL OXYCODONE PRESCRIPTION PATIENT IS PLANNING TO DC THIS WEEKEND AND PREFERRED PHARMACY IS CLOSED TILL THURSDAY.
--- NOTE | 2023-08-22 18:36 | PC.NURSE ---
Pt arrived to M/S floor around 1315. Pt had no complaints of pain. Pt?s dressing intact. Pt up with SBA. Pt voided. Pt did have two episodes of emesis midafternoon 600cc in total. Pt?s at bedside. ?VSS- with bradycardia-which was noted before surgery. If Pt discharges this evening instimeds has been set up due to patients pharmacy being closed until Thursday.
[2023-08-23] MEDS: KETOROLAC 15 MG/ML inj IVP (03:46)
[2023-08-23 04:00] VITALS: BP 115/65; PULSE 63; RESP 16; O2SAT 96
--- NOTE | 2023-08-23 07:06 | PC.NURSE ---
19-: pleasant and cooperative. Indep in rm. Pt and felt more comfortable with pt staying the night, Skip updated, new orders received for MS recovery. Pt rating pain 2/10 at rest, 5/10 with ambulation, prn Toradol given, offered relief.
[2023-08-23 07:21] VITALS: BP 106/63; PULSE 68; RESP 16; TEMP 36.8; O2SAT 97
[2023-08-23] MEDS: OXYCODONE 5 MG TABLET PO (11:06)
--- NOTE | 2023-08-23 11:41 | PC.NURSE ---
Pt alert and oriented. Pt had complaints of pain around 2-3; see EMAR for intervention. Pt up independently in room. Pt's steri strips intact. Pt's IV removed. Discharge gone over with Pt and .
--- NOTE | 2023-08-23 11:45 | PC.NURSE ---
After discharge Pt's clean catch urine was resulted as Gram negative Bertrand; Surgeon director of food and nutrition updated. Surgeon to follow up with Pt and intervention as necessary on 08/24/2023
== END 2023-08-23 11:30 | disposition home or self-care (01) ==
LOC: ED 09:41 → SS 09:50 → MEDSURG 13:20
PROVIDERS: Nurse Anesthetist, Certified Registered; Emergency Provider Family Medicine; PCP Family Medicine; Visit Provider Surgery
PROC: 0DTJ4ZZ Resection of Appendix, Percutaneous Endoscopic Approach (ICD-10-PCS; CPT 44970; principal; 2023-08-22 12:00)
DX: K35.80 Unspecified acute appendicitis (principal); K75.81 Nonalcoholic steatohepatitis (NASH)
CPT/HCPCS: 44970; 00840; 36415; 74177; 80048; 80076; 81001; 81003; 81025; 83690; 83735; 85025; 85610; 87086; 87186; 88304; 99140; 99285; A9270; J0330; J0665; J1100; J1170; J1630; J1885; J2250; J2310; J2405; J2543; J2704; J3010; J3490; J7120; Q9967

== ENCOUNTER 2023-11-27 10:25 | Outpatient (CLI) | payer OTHER, SELFPAY | END 2023-11-27 10:26 | disposition home or self-care (01) | LOC: NFLDREF 14:29 | PROVIDERS: PCP Family Medicine; Referring Provider Family Medicine; Visit Provider Family Medicine | DX: Z00.00 Encounter for general adult medical examination without abnormal findings (principal); K75.81 Nonalcoholic steatohepatitis (NASH); E66.9 Obesity, unspecified; R03.0 Elevated blood-pressure reading, without diagnosis of hypertension; R53.83 Other fatigue | CPT/HCPCS: 80053; 80061; 82306; 84443 ==

== ENCOUNTER 2023-12-10 10:14 | Outpatient (CLI) | payer OTHER, SELFPAY ==
--- NOTE | 2023-12-10 10:45 | CRLHL7_ITS ---
For Patients: As a result of the Century Cures Act, medical imaging exams and procedure reports are released immediately into your electronic medical record. You may view this report before your referring provider. If you have questions, please contact your health care provider. INDICATION: HINDS COMPARISON: 10/02/2022 TECHNIQUE: Real time michael scale imaging and color Doppler analysis was performed of the right upper quadrant. FINDINGS: The patient`s liver is of normal size and has uniform echogenicity. There is a normal appearance of the hepatic IVC and proximal abdominal aorta. There is no evidence of ascites. The gallbladder is of normal size and there is no evidence of intraluminal stones or sludge. The gallbladder wall measures 1.4 mm in thickness. The common bile duct is of normal size and measures 3.2 mm in diameter at the level of the nick hepatis. The pancreas appears normal. There is no evidence of a stone or hydronephrosis within the right kidney. The right kidney measures 11.6 cm in length. IMPRESSION: Normal right upper quadrant ultrasound. Specifically, the liver appears normal. Dictated by Pratik Capone MD @ 12/14/2023 6:11:26 AM (Electronically Signed)
--- NOTE | 2023-12-10 12:00 | CRLHL7_ITS ---
For Patients: As a result of the Century Cures Act, medical imaging exams and procedure reports are released immediately into your electronic medical record. You may view this report before your referring provider. If you have questions, please contact your health care provider. INDICATION: Epigastric abdominal pain. Prior appendectomy July 2023. TECHNIQUE: 5.2 mCi Tc-99m labeled Mebrofenin. 1.6 mcg Kinevac IV. FINDINGS: Normal uptake and excretion of tracer by the liver. Activity is identified promptly within the extrahepatic biliary tree between 5 and 10 minutes after injection. Delayed filling of the gallbladder seen initially at 45 minutes after injection. The gallbladder fills up to 1 hour. No biliary leak. After the administration of CCK, the gallbladder ejection fraction is calculated at 10 percent which is below the lower limit of normal of 35 percent. This can be seen in chronic calculous or acalculous cholecystitis or biliary dyskinesia. Please correlate clinically. IMPRESSION : Abnormal HIDA scan. Delayed visualization of the gallbladder. Abnormally low gallbladder ejection fraction. Chronic cholecystitis/biliary dyskinesia is in the differential. Dictated by Qasim Rosenbaum MD @ 12/10/2023 2:10:40 PM (Electronically Signed)
== END 2023-12-10 10:15 | disposition home or self-care (01) ==
LOC: US 10:15
PROVIDERS: PCP Family Medicine; Visit Provider Family Medicine
DX: K75.81 Nonalcoholic steatohepatitis (NASH) (principal); R10.13 Epigastric pain
CPT/HCPCS: 76705; 78227; A9537; J2805

== ENCOUNTER 2023-12-24 13:20 | Outpatient (CLI) | payer OTHER, SELFPAY ==
--- NOTE | 2023-12-24 13:20 | CRLHL7_ITS ---
For Patients: As a result of the Cures Act, medical imaging exams and procedure reports are released immediately into your electronic medical record. You may view this report before your referring provider. If you have questions, please contact your health care provider. BILATERAL SCREENING MAMMOGRAM WITH COMPUTER-AIDED DETECTION AND TOMOSYNTHESIS TECHNIQUE: CC and MLO views were obtained. These mammographic images have been obtained using full-field digital technique. These mammographic images were interpreted with the benefit of computer-aided detection. Breast Tomosynthesis was used in this interpretation. COMPARISON FILM: 12/18/21, 10/04/19, 06/16/16. FINDINGS: There are scattered areas of fibroglandular density IMPRESSION: There is no radiographic evidence for malignancy. ASSESSMENT: BI-RADS Category 1: Negative RECOMMENDATION: Routine screening mammogram in 1 year. A lay language report of this examination will be provided to the patient. Pratik Capone M.D. Diagnostic Radiologist [email or web address] TRAVIS/mumtaz / bM/Dictated by: Pratik Capone MD @ 12/25/2023 10:47:00 AM (Electronically Signed)
== END 2023-12-24 13:21 | disposition home or self-care (01) ==
LOC: MAMMO 13:21
PROVIDERS: PCP Family Medicine; Visit Provider Physician Assistant
DX: Z12.31 Encounter for screening mammogram for malignant neoplasm of breast (principal)
CPT/HCPCS: 77063; 77067

== ENCOUNTER 2024-02-01 06:03 | Day surgery (SDC) | payer OTHER, SELFPAY ==
[2024-02-01] VITALS (13 sets, daily range): BP systolic 98–138; BP diastolic 63–92; PULSE 51–64; RESP 14–16; TEMP 36.1–36.6; O2SAT 90–100; BMI 29.1
[2024-02-01] MEDS: SODIUM CHLORIDE 0.9 % (FLUSH) 10 ML SYRINGE IVF (06:29)
[2024-02-01] MEDS: LACTATED RINGERS 500 ML 500 ML 100 ML IV (06:29)
[2024-02-01 06:33] LABS: Ur HCG Qualitative* Negative (Negative)
--- NOTE | 2024-02-01 07:10 | W.PM.H&PU ---
History & Physical Update History & Physical Update H&P Reviewed and patient assessed: No changes noted
--- NOTE | 2024-02-01 07:12 | P.GSOP_ITS ---
Operative Note Date of procedure: 02/01/24 Pre-op diagnosis: 1. Biliary dyskinesia. Post-op diagnosis: Same Type of Procedure: 1. Laparoscopic cholecystectomy. Indications: 43-year-old female presented to clinic for evaluation of epigastric abdominal pain that started 2 years ago. Patient complained of increased pain when her cat would jump on her upper abdomen and increased pain with palpation in epigastrium. 2 years ago patient had an ultrasound of her gallbladder that was read as normal and her liver had severe hepatic steatosis. Patient had changed her diet to low fat and low sugar diet. She was also avoiding greasy food and that helped her symptoms. Her follow-up ultrasound showed that her liver steatosis was improving. Patient was taking Pepcid for 2 years for mild acid reflux but continued to have episodes of abdominal pain. In July 2023 patient presented with acute appendicitis and underwent laparoscopic appendectomy. After laparoscopic appendectomy, patient recovered well. She underwent a HIDA scan that showed ejection fraction of 10%. During her HIDA scan patient had mild reproducibility of her symptoms. Patient's gallbladder ultrasound was repeated and showed no evidence of cholelithiasis or cholecystitis. Her common bile duct was normal in size. On clinical exam she had tenderness to palpation in epigastrium with negative Machado sign. Given patient's clinical history and her imaging findings, chronic cholecystitis/biliary dyskinesia was suspected, and laparoscopic cholecystectomy was recommended. The procedure discussed in detail. The risks associated procedure including infection, bleeding, injury to intra-abdominal organs, and injury to the common bile duct were all discussed with the patient, and she agreed to proceed. Procedure Description: After discussing the risks and benefits of the procedure, the patient signed informed consent.? The operative site was marked and the patient was brought to the operating room and placed on the operating table in supine position.? Care was taken to pad the patient's pressure points.?? The patient was then intubated by anesthesia.?? The operative site was then prepped and draped in the usual sterile fashion.? A time-out was then performed. A 5-mm laparoscopy port was placed in the left upper quadrant guided by a 5-mm laparoscope placed into a translucent trochar.~ Passage through the layers of the abdominal wall was visualized with the laparoscope.~ A pneumoperitoneum was established. A 0-degree 5-mm laparoscope was advanced into the abdomen. The abdomen was briefly surveyed, and no adhesions were noted. A 10-mm port were placed infraumbilically and two more 5 mm ports were placed on the right under direct visualization by laparoscope. The camera was then changed to 10 mm 30- degree scope and placed into the abdomen through the 10 mm port. The left upper quadrant port entrance was examined and no injury to intra-abdominal organs was identified. The gallbladder was identified, the fundus grasped and retracted cephalad. The infundibulum was grasped and retracted laterally, exposing the peritoneum overlying the triangle of Calot. This was then divided and exposed in a blunt fashion and with hook cautery. Common bile duct was not identified but care was taken not to injure it. The cystic duct was clearly identified and bluntly dissected circumferentially. The cystic duct was very small in size. Cystic artery was identified and tissues around it were dissected off. The cystic artery and the cystic duct were clearly going into the gallbladder. The cystic duct was then doubly ligated with surgical clips on the patient's side and singly clipped on the gallbladder side and divided. The cystic artery was then similarly ligated with clips and divided as well. The gallbladder was dissected from the liver bed in retrograde fashion using hookcautery. The gallbladder was placed into an Endo-Catch bag and removed through the infraumbilical incision. Surgical site was examined for bleeding. Bleeding was noted from the vein in the gallbladder fossa. This bleeding was controlled with 5 mm clip. No bleeding was seen in the surgical field. The fascia of the infraumbilical incision was then closed with 0-0 vicryl using Jared Beatriz needle under direct visualization. Pneumoperitoneum was completely reduced after viewing removal of the trocars under direct vision. The skin was then closed with 4-0 monocryl and steristrips were applied. Instrument, sponge, and needle counts were correct at closure and at the conclusion of the case. The patient was transferred to PACU in stable condition. Findings: No acute inflammation noted. Anesthesia: GETA Surgeon: Marissa Stringer MD Estimated blood loss (mL): 5 Specimen: Gallbladder Condition: stable Disposition: PACU
[2024-02-01] MEDS: CEFAZOLIN 2 GM INJ IVP (07:35)
[2024-02-01] MEDS: LIDOCAINE 1%-EPI 1:100,000 10 ML INFILTRATI (07:41)
[2024-02-01] MEDS: BUPIVACAINE 0.25% 30 ML 10 ML INJECTION (07:41)
--- NOTE | 2024-02-01 08:31 | W.ANESCHARGE ---
Anesthesia Charges Start Date/Time Anesthesia Start Date: 02/01/24 Anesthesia Start Time: 07:20 Stop Date/Time Anesthesia Stop Date: 02/01/24 Anesthesia Stop Time: 08:27
--- NOTE | 2024-02-01 09:27 | W.ANESCHARGE ---
Anesthesia Charges Start Date/Time Anesthesia Start Date: 02/01/24 Anesthesia Start Time: 07:20 Stop Date/Time Anesthesia Stop Date: 02/01/24 Anesthesia Stop Time: 08:27
== END 2024-02-01 10:25 | disposition home or self-care (01) ==
PROVIDERS: Anesthesiology; PCP Family Medicine; Visit Provider Surgery
PROC: 0FT44ZZ Resection of Gallbladder, Percutaneous Endoscopic Approach (ICD-10-PCS; CPT 47562; principal; 2024-02-01 07:30)
DX: K82.8 Other specified diseases of gallbladder (principal); R10.13 Epigastric pain; K21.9 Gastro-esophageal reflux disease without esophagitis
CPT/HCPCS: 47562; 00790; 81025; 88304; J0330; J0665; J0690; J1100; J1885; J2250; J2405; J2704; J3010; J3490; J7120

== ENCOUNTER 2024-02-10 13:57 | Outpatient (CLI) | payer OTHER, SELFPAY | END 2024-02-10 13:58 | disposition home or self-care (01) | LOC: NFLDREF 13:59 | PROVIDERS: PCP Family Medicine; Visit Provider Surgery | DX: R14.0 Abdominal distension (gaseous) (principal); Z90.49 Acquired absence of other specified parts of digestive tract | CPT/HCPCS: 80076 ==

== ENCOUNTER 2024-04-10 12:34 | Outpatient (CLI) | payer OTHER, SELFPAY | END 2024-04-10 12:35 | disposition home or self-care (01) | LOC: NFLDREF 04-13 06:17 | PROVIDERS: PCP Family Medicine; Referring Provider Family Medicine; Visit Provider Nurse Practitioner Family | DX: R82.90 Unspecified abnormal findings in urine (principal) | CPT/HCPCS: 87086 ==

== ENCOUNTER 2024-05-26 14:32 | Outpatient (CLI) | payer OTHER, SELFPAY ==
[2024-05-29 04:22] LABS: HPV Source Cervix; HPV, High Risk by TMA Not Detected
== END 2024-05-26 14:33 | disposition home or self-care (01) ==
PROVIDERS: PCP Family Medicine; Visit Provider Physician Assistant
DX: Z12.4 Encounter for screening for malignant neoplasm of cervix (principal); Z11.51 Encounter for screening for human papillomavirus (HPV)
CPT/HCPCS: 87624; 87625; 88141; 88142

== ENCOUNTER 2025-01-12 09:00 | Outpatient (CLI) | payer OTHER, SELFPAY | END 2025-01-12 09:01 | disposition home or self-care (01) | LOC: LKVREF 09:02 | PROVIDERS: PCP Family Medicine; Visit Provider Family Medicine | DX: E78.5 Hyperlipidemia, unspecified (principal); K75.81 Nonalcoholic steatohepatitis (NASH) | CPT/HCPCS: 80053; 80061 ==

== ENCOUNTER 2025-02-09 09:11 | Outpatient (CLI) | payer OTHER, SELFPAY | END 2025-02-09 09:12 | disposition home or self-care (01) | LOC: NFLDREF 02-13 14:09 | PROVIDERS: PCP Family Medicine; Referring Provider Family Medicine; Visit Provider Family Medicine | DX: K75.81 Nonalcoholic steatohepatitis (NASH) (principal) | CPT/HCPCS: 80076 ==

== ENCOUNTER 2025-02-14 08:56 | Outpatient (CLI) | payer OTHER, SELFPAY ==
--- NOTE | 2025-02-14 09:15 | CRLHL7_ITS ---
For Patients: As a result of the Century Cures Act, medical imaging exams and procedure reports are released immediately into your electronic medical record. You may view this report before your referring provider. If you have questions, please contact your health care provider. INDICATION: HINDS COMPARISON: 12/10/2023 TECHNIQUE: Real time michael scale imaging and color Doppler analysis was performed of the right upper quadrant. FINDINGS: The patient`s liver is of normal size and has mildly increased echogenicity. There is a normal appearance of the hepatic IVC and proximal abdominal aorta. There is no evidence of ascites. The gallbladder is absent. The common bile duct is of normal size and measures 3 mm in diameter at the level of the nick hepatis. The pancreas appears normal. There is no evidence of a stone or hydronephrosis within the right kidney. The right kidney measures 11.7 cm in length. IMPRESSION: Minimal hepatic steatosis. Status post cholecystectomy. No biliary obstruction. Dictated by Pratik Capone MD @ 02/14/2025 2:37:54 PM (Electronically Signed)
== END 2025-02-14 08:57 | disposition home or self-care (01) ==
PROVIDERS: PCP Family Medicine; Visit Provider Family Medicine
DX: K75.81 Nonalcoholic steatohepatitis (NASH) (principal); Z90.49 Acquired absence of other specified parts of digestive tract; K83.1 Obstruction of bile duct
CPT/HCPCS: 76705